=== PATIENT | male | born 1965 | race Two or more races ===

== ENCOUNTER 2019-10-24 21:04 | Emergency (ER) | payer OTHER ==
[~2019-10-24] VITALS: Ht 200.7 cm; Wt 113.4 kg
[2019-10-24 22:38] VITALS: BP 151/75
[2019-10-24] MEDS ORDERED: TDAP [DIPH/PERTUSSIS/TET] 0.5 ML VIAL IM ONE ×2 (22:47→23:00)
== END 2019-10-24 23:11 | disposition home or self-care (01) ==
LOC: ER 21:06
DX: S61.032A Puncture wound without foreign body of left thumb without damage to nail, initial encounter (principal); I10 Essential (primary) hypertension; E78.5 Hyperlipidemia, unspecified; W55.01XA Bitten by cat, initial encounter; Y93.89 Activity, other specified; Y92.89 Other specified places as the place of occurrence of the external cause; Y99.8 Other external cause status
CPT/HCPCS: 90715